=== PATIENT | female | born 1980 | race Native Hawaiian/Other Pacific Islander ===

== ENCOUNTER 2019-02-26 08:59 | Outpatient (CLI) | payer BC | END 2019-02-26 20:32 | disposition home or self-care (01) | LOC: LABW 08:59 | DX: R19.7 Diarrhea, unspecified (principal); K92.1 Melena; R10.9 Unspecified abdominal pain | CPT/HCPCS: 82272; 83630; 87015; 87045; 87324; 87328; 87329; 87449; 87899 ==

== ENCOUNTER 2020-06-22 10:51 | Outpatient (CLI) | payer BC | END 2020-06-22 22:50 | disposition home or self-care (01) | LOC: RAD 10:51 | PROVIDERS: ATTEND Internal Medicine | DX: R05 Cough (principal); R07.89 Other chest pain ==

== ENCOUNTER 2021-12-28 15:15 | Outpatient (CLI) | payer BC | END 2021-12-28 18:53 | disposition home or self-care (01) | LOC: CT 15:15 | PROVIDERS: ATTEND Internal Medicine | DX: R51.9 Headache, unspecified (principal) ==

== ENCOUNTER 2022-04-11 11:46 | Outpatient (CLI) | payer BC | END 2022-04-11 18:58 | disposition home or self-care (01) | LOC: RAD 11:46 | PROVIDERS: ATTEND Internal Medicine | DX: M79.672 Pain in left foot (principal) ==